=== PATIENT | female | born 1960 | race Caucasian/White ===

== ENCOUNTER 2017-10-17 08:30 | Emergency (ER) | payer BC ==
[2017-10-17 08:37] VITALS: BP 162/72
--- NOTE | 2017-10-17 10:20 | UC ---
Nino Griffith Alfonso, scribed for Carissa Meneses DO on 10/17/17 at 0848 . Complaint Female HPI - HPI Summary HPI Summary: This patient is a 56 year old F presenting to [facility] with a chief complaint of dysuria since 2 days ago. She reports I had trouble starting and ending peeing. The patient rates the burning pain 5/10 in severity. Symptoms alleviated by nothing. Patient reports fever (101 yesterday and alleviated by Advil yesterday and at 0400 today), lower abdominal pressure and burning (2 days), urinary frequency, and headache (WITH FEVER resolved ADVIL). Patient denies N/V, back pain, CP, SOB, and sore throat. - History Of Current Complaint Chief Complaint: UCGU Stated Complaint: BURNING URINATION Time Seen by Provider: 10/17/17 08:42 Hx Obtained From: Patient Onset/Duration: Gradual Onset, Lasting Days - 2, Still Present Timing: Constant Severity Initially: Moderate Severity Currently: Moderate Pain Intensity: 5 Pain Scale Used: 0-10 Numeric Character: Burning Aggravating Factor(s): Urination Alleviating Factor(s): Position Associated Signs And Symptoms: Positive: Fever. Negative: Back Pain, Vaginal Bleeding/Discharge, Vaginal Discharge, Nausea, Vomiting(# Of Episodes =), Genital Swelling, Genital Blisters - Allergies/Home Medications Allergies/Adverse Reactions: Allergies Allergy/AdvReac Type Severity Reaction Status Date / Time Iodine Allergy Hives Verified 10/17/17 08:37 Prochlorperazine Allergy Hives Verified 10/17/17 08:37 [From Compazine] Sulfa Antibiotics Allergy Hives Verified 10/17/17 08:37 Home Medications: Home Medications Diltiazem HCl 240 mg PO DAILY 10/17/17 [History Confirmed 10/17/17] Ibuprofen [Ibuprofen 200 MG] 400 mg PO Q6HR PRN 10/17/17 [History Confirmed ] Metoprolol Succinate [Metoprolol Succinate ER] 25 mg PO DAILY 10/17/17 [History Confirmed 10/17/17] PMH/Surg Hx/FS Hx/Imm Hx Previously Healthy: No Cardiovascular History: Hypertension, Other - SVT Other Cardiovascular History: SVT GI/ History: Other - IBS Other GI/ History: IBS - Surgical History Surgical History: Yes Surgery Procedure, Year, and Place: appy, cholecystectomy - Family History Known Family History: Positive: Cardiac Disease - Mi in mother, Blood Disorder Negative: Hypertension, Diabetes - Social History Occupation: Retired Lives: With Family Alcohol Use: Rare Substance Use Type: None Smoking Status (MU): Never Smoked Tobacco - Immunization History Most Recent Influenza Vaccination: 08/2017 Review of Systems Constitutional: Fever ENT: Other - Negative sore throat Respiratory: Other - Negative SOB Cardiovascular: Other - Negative CP Gastrointestinal: Abdominal Pain - lower pressure and burning, Other - Negative N/V Genitourinary: Dysuria, Frequency Musculoskeletal: Other: - Negative back pain Neurological: Headache All Other Systems Reviewed And Are Negative: Yes Physical Exam Triage Information Reviewed: Yes Appearance: Well-Appearing, No Pain Distress, Well-Nourished Vital Signs: Initial Vital Signs Temp 99.2 F 10/17/17 08:31 Pulse 108 10/17/17 08:31 Resp 22 10/17/17 08:31 BP 162/72 10/17/17 08:31 Pulse Ox 98 10/17/17 08:31 Vital Signs Reviewed: Yes Eyes: Positive: Conjunctiva Clear. Negative: Discharge ENT: Positive: Hearing grossly normal. Negative: Muffled voice, Hoarse voice Neck exam: Normal Neck: Positive: Supple Respiratory: Positive: Lungs clear, Normal breath sounds, No respiratory distress, No accessory muscle use Cardiovascular: Positive: RRR, No Murmur Abdomen Description: Positive: Soft, Other: - Suprapubic tenderness. Negative: CVA Tenderness (R), CVA Tenderness (L), Distended, Guarding, McBurney's Point Tenderness Bowel Sounds: Positive: Present Musculoskeletal Exam: Normal Neurological: Positive: Alert, Muscle Tone Normal Psychological Exam: Normal Psychological: Positive: Age Appropriate Behavior Skin Exam: Normal Skin: Positive: Other - Warm, Dry, Normal color Complaint Female Dx - Course Course Of Treatment: Patient will be discharged with prescription for Cipro and Pyridum, and follow up from PCP. The patient is agreeable with this plan. Medications reviewed. Allergies reviewed. High blood pressure noted. - Differential Dx/Diagnosis Provider Diagnoses: Hypertension. UTI. Hematuria. Discharge - Discharge Plan Condition: Stable Disposition: HOME Prescriptions: Ciprofloxacin HCl [Cipro] 500 mg PO BID #10 tab Phenazopyridine TAB* [Pyridium TAB*] 200 mdi PO TID PRN #6 tab PRN Reason: Pain Patient Education Materials: Urinary Tract Infection in Women (ED), Hematuria ( ED) Referrals: Duncan Gudino [Primary Care Provider] - 2 Weeks (FOLLOW UP IN 2 DAYS IF NOT IMPROVING. OTHERWISE FOLLOW UP IN 2 WEEKS.) Additional Instructions: CIPROFLOXACIN: You have been given a new antibacterial agent, ciprofloxacin (Cipro). This medicine is not related to the penicillins, sulfas, cephalosporins, or tetracyclines. It is often given to patients who are allergic to these drugs. It has been chosen for you either because other drugs are not appropriate, or because of the nature of your problem. Cipro should not be taken with antacids, as these can decrease its effectiveness. It can be taken without regard to meals. CIPRO SHOULD NOT BE TAKEN BY CHILDREN, NURSING WOMEN, OR WOMEN. Although Cipro is usually well-tolerated, common side effects can include nausea and diarrhea. Contact your doctor if you experience any unusual symptoms while on this medication, such as joint pain or swelling, shortness of breath, wheezing, faintness, or hives. ANYTIME YOU TAKE AN ANTIBIOTIC, IT IS IMPORTANT TO REPLENISH THE BODY'S SUPPLY OF "GOOD BACTERIA." YOU CAN GET GOOD BACTERIA FROM HIGH QUALITY CULTURED FOODS SUCH LOCAL YOGURT, SOUR KRAUT, STEFANI ENDER, NATURALLY FERMENTED PICKLES AND PROBIOTIC DRINKS. YOU CAN ALSO GET GOOD BACTERIA FROM A PROBIOTIC SUPPLEMENT. WE HAVE GIVEN YOU A BLADDER ANESTHETIC TO HELP CONTROL PAIN WHILE THE ANTIBIOTICS HELP GET THE INFECTION UNDER CONTROL. Your blood pressure was elevated at 162/72 this visit. Please follow up with your primary care provider. The documentation as recorded by the Nino murillo Alfonso accurately reflects the service I personally performed and the decisions made by me, Carissa Meneses DO.
--- NOTE | 2017-10-18 18:08 | UC ---
Progress - Progress Note Progress Note: May stop antibiotic---Urine Culture does not support DX of UTI ---Should patient have continued sx follow with pcp, UC, ED or [facility] for further [facility]
== END 2017-10-17 09:32 | disposition home or self-care (01) ==
LOC: UCEAST 08:30
DX: I10 Essential (primary) hypertension (principal); I47.1 Supraventricular tachycardia; N39.0 Urinary tract infection, site not specified; R31.9 Hematuria, unspecified
CPT/HCPCS: 81003; 87086; 99212; G0463